=== PATIENT | female | born 1975 | race African-American/Black ===

== ENCOUNTER 2017-03-08 15:27 | Emergency (ER) | payer OTHER ==
[~2017-03-08] VITALS: Wt 76.0 kg
[~2017-03-08 15:27] MED LIST: ANTIDEPRESSANT; HYDR-906 PO
--- NOTE | 2017-03-08 16:17 | ERD ---
ER Documentation Chief Complaint Date/Time DATE: 03/08/17 TIME: 15:48 Chief Complaint HEADACHE, HEAD INJURY YEARS AGO, DIZZINESS HPI 42 year old female with depression presents complaining of chronic intermittent mild to moderate global headaches, episodes of lightheadedness for the past couple years. Patient states she had a traumatic brain injury in the past. She states that about a year ago she had imaging, she was told everything is normal. Patient states that sometimes she feels as if she has fluid in her head and wants another image done. She denies neuro deficits, blurry vision, nausea, vomiting, chest pain, shortness of breath ROS All systems reviewed and are negative except as per history of present illness. Medications Home Meds Active Scripts Acetaminophen* (Tylenol*) 325 Mg Tablet, 2 TAB PO Q6 Y for PAIN AND OR ELEVATED TEMP, #30 TAB Prov:BRODY STUART PA-C 03/08/17 Hydrocodone/Acetaminophen ([place] 5-325 Tablet) 1 Each Tablet, 1 EACH PO Q6, #12 TAB Prov:CARMEN MERRILL PA-C 04/24/16 Reported Medications [Antidepressant] No Conflict Check 01/20/12 Allergies Allergies: Coded Allergies: No Known Allergy (Unverified , 01/20/12) PMhx/Soc History of Surgery: Yes () Anesthesia Reaction: No Hx Neurological Disorder: No Hx Respiratory Disorders: No Hx Cardiac Disorders: No Hx Psychiatric Problems: Yes (ANTIDEPRESSANT) Hx Miscellaneous Medical Probl: No Hx Alcohol Use: No Hx Substance Use: No Hx Tobacco Use: No Physical Exam Vitals Vital Signs Date Time Temp Pulse Resp B/P Pulse Ox O2 Delivery O2 Flow Rate FiO2 03/08/17 15:30 98.4 89 18 120/80 100 Physical Exam GENERAL: well-developed/well-nourished, in no apparent distress, non-toxic appearing HENT: NC/AT, bilateral tympanic membrane is normal with good cone of light, nares patent, oropharynx clear without exudates EYES: Conjunctiva normal, PERRLA, EOMI, no nystagmus noted NECK: Supple, no lymphadenopathy PULM: CTA bilaterally, no rales, rhonchi, or wheezing heard CV: Normal S1S2, RRR, good capillary refill GI: Soft, non-distended, normal bowel sounds, non-tender BACK: No midline tenderness, no masses, No CVAT EXT: No clubbing, cyanosis, or edema NEURO: Alert and orientated to person, place, and time. CN II-IIX intact. Gait and coordination were normal. Hand commercial leasing manager strength were equal and within normal limits SKIN: Intact, normal turgor PSYCH: Normal mood and mentation, patient denied SI Procedures/MDM 42 year old female with depression presents complaining of chronic intermittent mild to moderate global headaches, episodes of lightheadedness for the past couple years. Patient states she had a traumatic brain injury in the past. Patient appears well, stable vital signs, normal neurological exam to be discharged home to follow up with neurologist and primary care physician. CT head, accu-check, EKG, UA was ordered and results pending, will be followed by AASHISH Mccrary Departure Diagnosis: Primary Impression: Headache Additional Impression: Dizziness Condition: Fair BRODY STUART PA-C Mar 08, 2017 16:13
[2017-03-08] MEDS ORDERED: ACET325T33 PO (16:24)
[2017-03-08 17:24] LABS: ADD UMIC YES; UR ASCORBIC ACID NEGATIVE (NEGATIVE); UR BACTERIA FEW /HPF (NONE SEEN); UR BILIRUBIN (Dip) NEGATIVE (NEGATIVE); UR BLOOD (Dip) NEGATIVE (NEGATIVE); UR CLARITY CLEAR (CLEAR); UR COLOR YELLOW (YELLOW); UR GLUCOSE (Dip) NEGATIVE (NEGATIVE); UR KETONES (Dip) NEGATIVE (NEGATIVE); UR LEUKOCYTE ESTERASE (Dip) 3+ Leu/ul (NEGATIVE); UR NITRITE (Dip) NEGATIVE (NEGATIVE); UR RBC 3 /HPF (0-5); UR SPECIFIC GRAVITY (Dip) 1.024 (1.003-1.030); UR SQUAMOUS EPITHELIAL CELL FEW /HPF (FEW); UR TOTAL PROTEIN (Dip) NEGATIVE (NEGATIVE); UR UROBILINOGEN (Dip) NEGATIVE (NEGATIVE)
--- NOTE | 2017-03-08 17:38 | RADRPT ---
PROCEDURE: CT brain without contrast CLINICAL INDICATION: Dizziness TECHNIQUE: CT of the brain without contrast was performed on a multidetector CT scanner, with multi planar reformats. One or more of the following dose reduction techniques were used: Automated expos ure control, adjustment in mA and / or kV according to patient size, use of iterative reconstructive technique. CTDIvol = 43 mGy; DLP = 823 mGy-cm. COMPARISON: None available FINDINGS: No acute intracranial hemorrhage is identified. No extra-axial fluid collection is seen. There is no mass effect. No midline shift is identified. Ventricles and sulci are within normal limits for size and configuration. The density of the brain is within normal limits. Crane-white differentiation is preserved. Osseous structures are unremarkable. Mastoid air cells and imaged paranasal sinuses grossly clear. IMPRESSION: Unremarkable noncontrast CT of the brain. RPTAT: VV .Bill Sykes MD, Date Time Electronically viewed and signed by .Bill Sykes MD, on 03/08/2017 17:38 .O/
[2017-03-08] MEDS ORDERED: CEPH-443 PO (17:49)
--- NOTE | 2017-03-08 18:59 | EN ---
Date/Time of Note Date/Time of Note DATE: 03/08/17 TIME: 18:57 ER Progress Note This patient was signed out to me pending CT head results and urinalysis results by Laura POWERS. CT head was negative for acute findings. Urinalysis was concerning for urinary tract infection and I prescribed the patient Keflex. Imaging and lab results were shared with the patient and she understood and was in agreement. The patient was stable prior to discharge. imaging: [place] [id number] Radiology Main Line: [phone] DIAGNOSTIC IMAGING REPORT Patient: LANG CHRISTIANSON : 1975 Age: 42 Sex: F MR #: [id number] DOS: 03/08/17 1543 Ordering MD: LAURA STUART PA-C Location: [facility] Room/Bed: PROCEDURE: CT brain without contrast CLINICAL INDICATION: Dizziness TECHNIQUE: CT of the brain without contrast was performed on a multidetector CT scanner, with multiplanar reformats. One or more of the following dose reduction techniques were used: Automated exposure control, adjustment in mA and / or kV according to patient size, use of iterative reconstructive technique. CTDIvol = 43 mGy; DLP = 823 mGy-cm. COMPARISON: None available FINDINGS: No acute intracranial hemorrhage is identified. No extra-axial fluid collection is seen. There is no mass effect. No midline shift is identified. Ventricles and sulci are within normal limits for size and configuration. The density of the brain is within normal limits. Crane-white differentiation is preserved. Osseous structures are unremarkable. Mastoid air cells and imaged paranasal sinuses grossly clear. IMPRESSION: Unremarkable noncontrast CT of the brain. RPTAT: VV .Bill Sykes MD, MD Date Time Electronically viewed and signed by .Bill Sykes MD, MD on 03/08/2017 17:38 .O/ CC: LAURA STUART PA-C, DANIEL J PA-C Mar 08, 2017 18:59
[2017-03-08 19:11] VITALS: BP 130/79; PULSE 68; RESP 18; TEMP 98.1
== END 2017-03-08 19:12 | disposition home or self-care (01) ==
LOC: FTE 15:27
DX: R51 Headache (principal); R42 Dizziness and giddiness
CPT/HCPCS: 70450; 81001; 82962; Z7502; 93005

== ENCOUNTER 2017-06-30 21:20 | Emergency (ER) | payer OTHER ==
[~2017-06-30] VITALS: Ht 167.6 cm; Wt 72.5 kg
[~2017-06-30 21:20] MED LIST changes: +ACET325T33 PO; +CEPH-443 PO
[2017-06-30 21:31] VITALS: Ht 167.6 cm; Wt 72.5 kg
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
--- NOTE | 2017-06-30 22:49 | RADRPT ---
PROCEDURE: XR Chest. CLINICAL INDICATION: Cough. TECHNIQUE: Portable AP upright view of the chest was obtained. COMPARISON: None. FINDINGS: The cardiomediastinal silhouette is within normal limits. Possible calcified left hilar lymph.. The lungs are clear of acute infiltrates. Punctate calcification in the left lower lobe is likely a gra nuloma. There is no evidence for pleural effusion, pneumothorax or pulmonary vascular congestion. The osseous structures are intact with no evidence for acute abnormality. RPTAT:HJJR IMPRESSION: Chronic granulomatous disease without evidence for acute intrathoracic pathology. Physician Cortney Date Time Electronically viewed and signed by Physician Cortney on 06/30/2017 22:48 /
[2017-06-30] MEDS ORDERED: AZIT250T94 PO (23:01)
[2017-06-30] MEDS ORDERED: GUAI473L22 PO (23:01)
[2017-06-30] MEDS ORDERED: ALBU8.5H3 INH (23:01)
[2017-06-30] MEDS ORDERED: CETI10CA PO (23:01)
[2017-06-30 23:17] VITALS: BP 118/77; PULSE 85; RESP 17; TEMP 98.6
== END 2017-06-30 23:19 | disposition home or self-care (01) ==
LOC: FTE 21:20
DX: J20.9 Acute bronchitis, unspecified (principal)
CPT/HCPCS: 71010; 93005; Z7502

== ENCOUNTER 2018-05-27 15:00 | Emergency (ER) | END 2018-05-27 16:39 | disposition home or self-care (01) ==

== ENCOUNTER 2018-06-23 17:18 | Emergency (ER) | END 2018-06-23 18:55 | disposition home or self-care (01) ==

== ENCOUNTER → 2019-02-05 | Emergency (ER) | payer OTHER ==
[~2019-02-05] VITALS: Ht 167.6 cm; Wt 75.2 kg
[~2019-02-05] MED LIST changes: +ACET500C5 PO; +ALBU8.5H8 INH; +AZIT250T PO; +BACITUD TOP; +CETI10CA PO; +CYCL10TA7 PO; +GUAI473L22 PO; +HYDR-4011 PO; -HYDR-906 PO; +IBUP-1542 PO; +NAPR-985 PO; +traMADol 50 MG TAB PO ONE
[2019-02-05 20:36] VITALS: Ht 167.6 cm; Wt 75.2 kg
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
[2019-02-05 22:20] VITALS: BP 118/71; PULSE 77; RESP 18
== END | disposition home or self-care (01) ==
LOC: FTE 20:33
DX: S99.921A Unspecified injury of right foot, initial encounter (principal); W20.8XXA Other cause of strike by thrown, projected or falling object, initial encounter; Y92.89 Other specified places as the place of occurrence of the external cause
CPT/HCPCS: 73630; Z7502; Z7610